=== PATIENT | male | born 1990 | race Caucasian/White ===

== ENCOUNTER 2020-11-18 17:59 | Inpatient (IN) ==
--- NOTE | 2020-11-18 18:25 | Emergency Department Note ---
Impression & Plan Depression with suicidal ideation ED Provider Note NAME: MELINDA KUMAR AGE: 30 SEX: M : 1990 ARRIVES VIA: Walk-In INFORMANT: Patient, ED PROVIDER(S): Alfonzo Miller MD Chief Complaint: Suicidal ideation, concern for mental wellness HPI: Patient is a transgender male to female name Juana who does present with concern for suicidal ideation. The patient has been researching possibility of purchasing a gun in order to shoot herself. Patient has had a prior history of SI General anxiety as well as depression. Patient has had a prior history of suicidal ideation. Patient does use psychedelics, marijuana as well as occasional alcohol use. 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 Patient sleep and appetite has been okay. Patient denies any HI or AVH. Patient states that most of the suicidal ideation is stemmed from reported rumors that the patient is not being allowed [employer] or other clubs or groups that the patient with his previously affiliated with. ROS: See HPI for pertinent positives and negatives. A total of 10 systems were reviewed and otherwise negative. Past medical history: See below Surgical history: See below Social history: See below Physical Exam: GENERAL: Well appearing, well nourished, NAD, non-toxic. EYE EXAM: Normal conjunctiva. PERRL, no anisocoria and EOM's grossly intact w/o pain. NECK: Supple, no nuchal rigidity, no adenopathy, non-tender. No signs of meningismus. LUNGS: Clear to auscultation. Normal chest wall mechanics. HEART: NSR, no MRG. ABDOMEN: Abdomen soft, non-tender, normo-active bowel sounds, no masses, no rebound or guarding. BACK: No CVA TTP. SKIN: No rashes and no bruising. UPPER EXTREMITIES: Upper extremities are grossly normal. LOWER EXTREMITIES: Grossly normal, no edema. NEURO EXAM: A&O x3, cranial nerves II-XII grossly intact, normal speech, moves all 4 extremities on command w/o issue. Psych: Positive SI, negative HI or AVH. Differential diagnoses: Mood disorder, infection, hypoglycemia, electrolyte abnormalities, cardiac sources, intracerebral event, toxicologic, trauma, neurologic, as well as other pathologies. Course: Patient was seen and evaluated the bedside. Full history physical exam was performed. MDM: Patient was seen due to concern for SI. Blood work was obtained. The patient was deemed medically cleared. The patient is a voluntary 201. Patient's home meds were ordered. Patient was signed out to Dr. Torres pending reevaluation and disposition. Past Med/Surg History Social History Smoking Status: Never smoker Preferred Language: French Feels Safe at Home: Yes Gender Identity: Female Allergies Allergies Allergy/AdvReac Type Severity Reaction Status Date / Time latex AdvReac Intermediate Rash Verified 11/18/20 21:14 mary AdvReac Intermediate Rash Verified 11/18/20 21:14 Home Meds Home Medications Medication Instructions Recorded Confirmed dexmethylphenidate 10 mg tablet 10 mg PO DAILY@1400 11/18/20 11/18/20 dexmethylphenidate 40 mg 40 mg PO QAM 11/18/20 11/18/20 capsule,extended release [id number] estradiol 2 mg tablet 2 - 4 mg PO QAM 11/18/20 11/18/20 fluoxetine 10 mg capsule 10 mg PO QAM 11/18/20 11/18/20 fluoxetine 20 mg capsule 20 mg PO QAM 11/18/20 11/18/20 guanfacine 1 mg tablet,extended 1 mg PO QAM 11/18/20 11/18/20 release 24 hr Results & Data (ED) Vital Signs Vital Signs - 24 hr 11/18/20 18:10 11/18/20 19:45 Temperature 36.7 C Temperature Source Temporal Artery Scan Pulse Rate 110 H Pulse Rate [Left Finger] 107 H Respiratory Rate 18 16 Respiratory Effort / Characteristics Non-Labored Spontaneous Non-Labored Respiratory Depth Normal Normal Respiratory Pattern Regular Blood Pressure 152/102 H Blood Pressure [Right Arm] 128/93 Blood Pressure Mean 118 Blood Pressure Mean [Right Arm] 104 Blood Pressure Position Sitting Pulse Oximetry 96 99 Oxygen Delivery Method Room Air Room Air Sepsis Recent Fever Within 48 Hours No Sepsis New/Unexplained Change in Mental Status N/A Sepsis Action Taken by Nursing No Action Required Home Medications Current Medication List: was personally reviewed by me Laboratory Data Attestation: I reviewed the patient's lab results. Result diagrams: 11/18/20 19:18 11/18/20 19:18 Lab Results 11/18/20 11/18/2011/18/21 Range/Units 18:29 18:29 19:18 WBC 6.72 (4.8-10.8) K/uL RBC 4.90 (4.7-6.1) M/uL Hgb 14.7 (14.0-18.0) g/dL Hct 43.9 (42-52) % MCV 89.6 (80-100) fL MCH 30.0 (25-34) pg MCHC 33.5 (32-36) g/dL RDW Std Deviation 42.0 (36.4-46.3) fL RDW Coeff of Susan 12.8 (11.5-14.5) % Plt Count 272 (130-400) K/uL MPV 9.7 (7.4-10.4) fL Immature Gran % (Auto) 0.1 % Neut % (Auto) 64.2 % Lymph % (Auto) 29.5 % [place] % (Auto) 4.9 % Eos % (Auto) 1.0 % Baso % (Auto) 0.3 % Neut # (Auto) 4.31 (1.4-6.5) K/uL Lymph # (Auto) 1.98 (1.2-3.4) K/uL [place] # (Auto) 0.33 (0.11-0.59) K/uL Eos # (Auto) 0.07 (0-0.5) K/uL Baso # (Auto) 0.02 (0-0.2) K/uL Immature Gran # (Auto) 0.01 (0.00-0.02) K/uL Sodium (136-145) mmol/L Potassium (3.5-5.1) mmol/L Chloride (98-107) mmol/L Carbon Dioxide (21-32) mmol/L Anion Gap (3-11) BUN (7-18) mg/dl Creatinine (0.6-1.4) mg/dl Est Cr Clr Drug Dosing ml/min Est GFR ( Amer) ml/min Est GFR (Non-Af Amer) ml/min BUN/Creatinine Ratio (10-20) Glucose (70-99) mg/dl Calcium (8.5-10.1) mg/dl Total Bilirubin (0.2-1) mg/dl AST (15-37) U/L ALT (12-78) U/L Alkaline Phosphatase (45-117) U/L Total Protein (6.4-8.2) gm/dl Albumin (3.4-5.0) gm/dl Globulin (2.5-4.0) gm/dl Albumin/Globulin Ratio (0.9-2) TSH (0.300-4.500) uIu/ml Urine Color Yellow Urine Appearance Clear (Clear) Urine pH 6.5 (4.5-7.5) Ur Specific [place] 1.017 (1.000-1.030) Urine Protein Negative (Negative) Urine Glucose (UA) Negative (Negative) Urine Ketones Negative (Negative) Urine Blood Negative (Negative) Urine Nitrite Negative (Negative) Urine Bilirubin Negative (Negative) Urine Urobilinogen Negative (Negative) Ur Leukocyte Esterase Negative (Negative) Salicylates (2.8-20) mg/dl Urine Opiates Screen Neg (Neg) Ur Methadone, Qual Neg (Neg) Acetaminophen (10-30) ug/ml Urine Barbiturates Neg (Neg) Ur Phencyclidine (PCP) Neg (Neg) U Amphetamin/Meth Scrn Neg (Neg) MDMA (Ecstasy) Screen Neg (Neg) U Benzodiazepines Scrn Neg (Neg) Ur Cocaine Metabolite Neg (Neg) U Marijuana (THC) Screen Neg (Neg) Ethyl Alcohol mg/dL (0-3) mg/dl COVID-19 Eval Order 11/18/20 11/18/20 11/18/20 Range/Units 19:18 19:18 19:18 WBC (4.8-10.8) K/uL RBC (4.7-6.1) M/uL Hgb (14.0-18.0) g/dL Hct (42-52) % MCV (80-100) fL MCH (25-34) pg MCHC (32-36) g/dL RDW Std Deviation (36.4-46.3) fL RDW Coeff of Susan (11.5-14.5) % Plt Count (130-400) K/uL MPV (7.4-10.4) fL Immature Gran % (Auto) % Neut % (Auto) % Lymph % (Auto) % [place] % (Auto) % Eos % (Auto) % Baso % (Auto) % Neut # (Auto) (1.4-6.5) K/uL Lymph # (Auto) (1.2-3.4) K/uL [place] # (Auto) (0.11-0.59) K/uL Eos # (Auto) (0-0.5) K/uL Baso # (Auto) (0-0.2) K/uL Immature Gran # (Auto) (0.00-0.02) K/uL Sodium 139 (136-145) mmol/L Potassium 3.3 L (3.5-5.1) mmol/L Chloride 108 H (98-107) mmol/L Carbon Dioxide 25 (21-32) mmol/L Anion Gap 6.0 (3-11) BUN 10 (7-18) mg/dl Creatinine 0.79 (0.6-1.4) mg/dl Est Cr Clr Drug Dosing 174.9 ml/min Est GFR ( Amer) 141.6 ml/min Est GFR (Non-Af Amer) 122.2 ml/min BUN/Creatinine Ratio 12.7 (10-20) Glucose 114 H (70-99) mg/dl Calcium 8.6 (8.5-10.1) mg/dl Total Bilirubin 1.0 (0.2-1) mg/dl AST 30 (15-37) U/L ALT 75 (12-78) U/L Alkaline Phosphatase 89 (45-117) U/L Total Protein 7.0 (6.4-8.2) gm/dl Albumin 3.7 (3.4-5.0) gm/dl Globulin 3.3 (2.5-4.0) gm/dl Albumin/Globulin Ratio 1.1 (0.9-2) TSH 0.570 (0.300-4.500) uIu/ml Urine Color Urine Appearance (Clear) Urine pH (4.5-7.5) Ur Specific [place] (1.000-1.030) Urine Protein (Negative) Urine Glucose (UA) (Negative) Urine Ketones (Negative) Urine Blood (Negative) Urine Nitrite (Negative) Urine Bilirubin (Negative) Urine Urobilinogen (Negative) Ur Leukocyte Esterase (Negative) Salicylates < 1.7 L (2.8-20) mg/dl Urine Opiates Screen (Neg) Ur Methadone, Qual (Neg) Acetaminophen < 2 L (10-30) ug/ml Urine Barbiturates (Neg) Ur Phencyclidine (PCP) (Neg) U Amphetamin/Meth Scrn (Neg) MDMA (Ecstasy) Screen (Neg) U Benzodiazepines Scrn (Neg) Ur Cocaine Metabolite (Neg) U Marijuana (THC) Screen (Neg) Ethyl Alcohol mg/dL < 3.0 (0-3) mg/dl COVID-19 Eval Order 11/18/20 Range/Units 19:45 WBC (4.8-10.8) K/uL RBC (4.7-6.1) M/uL Hgb (14.0-18.0) g/dL Hct (42-52) % MCV (80-100) fL MCH (25-34) pg MCHC (32-36) g/dL RDW Std Deviation (36.4-46.3) fL RDW Coeff of Susan (11.5-14.5) % Plt Count (130-400) K/uL MPV (7.4-10.4) fL Immature Gran % (Auto) % Neut % (Auto) % Lymph % (Auto) % [place] % (Auto) % Eos % (Auto) % Baso % (Auto) % Neut # (Auto) (1.4-6.5) K/uL Lymph # (Auto) (1.2-3.4) K/uL [place] # (Auto) (0.11-0.59) K/uL Eos # (Auto) (0-0.5) K/uL Baso # (Auto) (0-0.2) K/uL Immature Gran # (Auto) (0.00-0.02) K/uL Sodium (136-145) mmol/L Potassium (3.5-5.1) mmol/L Chloride (98-107) mmol/L Carbon Dioxide (21-32) mmol/L Anion Gap (3-11) BUN (7-18) mg/dl Creatinine (0.6-1.4) mg/dl Est Cr Clr Drug Dosing ml/min Est GFR ( Amer) ml/min Est GFR (Non-Af Amer) ml/min BUN/Creatinine Ratio (10-20) Glucose (70-99) mg/dl Calcium (8.5-10.1) mg/dl Total Bilirubin (0.2-1) mg/dl AST (15-37) U/L ALT (12-78) U/L Alkaline Phosphatase (45-117) U/L Total Protein (6.4-8.2) gm/dl Albumin (3.4-5.0) gm/dl Globulin (2.5-4.0) gm/dl Albumin/Globulin Ratio (0.9-2) TSH (0.300-4.500) uIu/ml Urine Color Urine Appearance (Clear) Urine pH (4.5-7.5) Ur Specific [place] (1.000-1.030) Urine Protein (Negative) Urine Glucose (UA) (Negative) Urine Ketones (Negative) Urine Blood (Negative) Urine Nitrite (Negative) Urine Bilirubin (Negative) Urine Urobilinogen (Negative) Ur Leukocyte Esterase (Negative) Salicylates (2.8-20) mg/dl Urine Opiates Screen (Neg) Ur Methadone, Qual (Neg) Acetaminophen (10-30) ug/ml Urine Barbiturates (Neg) Ur Phencyclidine (PCP) (Neg) U Amphetamin/Meth Scrn (Neg) MDMA (Ecstasy) Screen (Neg) U Benzodiazepines Scrn (Neg) Ur Cocaine Metabolite (Neg) U Marijuana (THC) Screen (Neg) Ethyl Alcohol mg/dL (0-3) mg/dl COVID-19 Eval Order Covid19 IDNow [facility] Administered Medications Discontinued Medications Estradiol (Estradiol 1 Mg Tab) 4 mg PO NOW STA Stop: 11/18/20 21:07 Last Admin: 11/18/20 21:33 Dose: 4 mg Documented by: [id number] Discharge Plan Visit Data Chief Complaint: Mental Health Evaluation Stated Complaint: SUCIDAL, ALTERED MENTAL STATE, INTENT TO HARM ED Provider: Alfonzo Miller Discharge Problem: Depression with suicidal ideation Forms Stand Alone Forms: [facility], Suicide Prevention Resources Prescriptions Prescriptions: No Action dexmethylphenidate 40 mg capsule,ER biphasic 50-50 40 mg PO QAM RF: 0 dexmethylphenidate 10 mg tablet 10 mg PO DAILY@1400 RF: 0 fluoxetine 10 mg capsule 10 mg PO QAM RF: 0 estradiol 2 mg tablet 2 - 4 mg PO QAM RF: 0 fluoxetine 20 mg capsule 20 mg PO QAM RF: 0 guanfacine 1 mg tablet extended release 24 hr 1 mg PO QAM RF: 0 Referrals Referrals: PCP,NO [Physician] -
[2020-11-18 18:44] LABS: Appearance Urine Clear (Clear); Bilirubin Urine Negative (Negative); Blood Urine Negative (Negative); Color Urine Yellow; Glucose Urine UA Negative (Negative); Ketones Urine Negative (Negative); Leukocyte Esterase Urine Negative (Negative); Nitrite Urine Negative (Negative); Protein Urine Negative (Negative); Specific Gravity Urine 1.017 (1.000-1.030); Urobilinogen Urine Negative (Negative); pH Urine 6.5 (4.5-7.5)
[2020-11-18 19:32] LABS: Amphetamines+Metham, Urine Neg (Neg); Barbiturates, Urine Neg (Neg); Benzodiazepine, Urine Neg (Neg); Cocaine, Urine Neg (Neg); MDMA (Ecstacy), Urine Neg (Neg); Methadone, Urine Neg (Neg); Opiate, Urine Neg (Neg); Phencyclidine, Urine Neg (Neg)
[2020-11-18 19:37] LABS: Basophils # (auto) 0.02 K/uL (0-0.2); Basophils % (auto) 0.3 %; Eosinophils # (auto) 0.07 K/uL (0-0.5); Hematocrit (blood only) 43.9 % (42-52); Hemoglobin 14.7 g/dL (14.0-18.0); Immature Granulocytes # (auto) 0.01 K/uL (0.00-0.02); Immature Granulocytes % (auto) 0.1 %; Lymphocytes # (auto) 1.98 K/uL (1.2-3.4); Lymphocytes % (auto) 29.5 %; Mean Corpuscular Hgb Conc 33.5 g/dL (32-36); Mean Corpuscular Volume 89.6 fL (80-100); Mean Platelet Volume 9.7 fL (7.4-10.4); Monocytes # (auto) 0.33 K/uL (0.11-0.59); Monocytes % (auto) 4.9 %; Neutrophils # (auto) 4.31 K/uL (1.4-6.5); Neutrophils % (auto) 64.2 %; Platelet Count 272 K/uL (130-400); RDW Coefficient of Variation 12.8 % (11.5-14.5); White Blood Count 6.72 K/uL (4.8-10.8)
[2020-11-18 19:55] LABS: Albumin Level 3.7 gm/dl (3.4-5.0); BUN Creatinine Ratio 12.7 (10-20); Calcium 8.6 mg/dl (8.5-10.1); Creatinine Clr Calc Pharmacy 174.9 ml/min; Est GFR (African American) 141.6 ml/min; Est GFR (Non-African American) 122.2 ml/min; Potassium 3.3 mmol/L (3.5-5.1)
[2020-11-18 20:05] LABS: Acetaminophen < 2 ug/ml (10-30); Salicylate < 1.7 mg/dl (2.8-20)
[2020-11-18 20:06] LABS: Albumin Globulin Ratio 1.1 (0.9-2); Globulin 3.3 gm/dl (2.5-4.0); Thyroid Stimulating Hormone 0.57 uIu/ml (0.300-4.500)
[2020-11-18] MEDS ORDERED: estradioL 1 MG TAB PO STA (21:06)
--- NOTE | 2020-11-18 22:55 | Emergency Department Note ---
ED Visit Note ED Physician Sign Out Note: 30 yr old patient with history of depression and worsening suicidal ideation now with plan to kill self with gun or jumping off a building. Patient medically cleared by Dr Miller and is here on 201 basis currently awaiting mental health placement. Stable overnight and signed out to Dr Bills pending placement. Andrea Torres MD
[2020-11-19] MEDS ORDERED: DEXMETHYLPHENIDATE PO SCH ×2 (09:00→14:00)
[2020-11-19] MEDS ORDERED: estradioL 1 MG TAB PO SCH (09:00)
[2020-11-19] MEDS: FLUoxetine HCL 10 MG CAP PO SCH (09:26)
[2020-11-19] MEDS: FLUoxetine HCL 20 MG CAP PO SCH (09:26)
[2020-11-19] MEDS ORDERED: MAGNESIUM HYDROXIDE SUSP 30 ML UDC PO PRN (14:40)
[2020-11-19] MEDS ORDERED: ACETAMINOPHEN 325 MG TAB PO PRN (14:40)
[2020-11-19] MEDS ORDERED: SODIUM CHLORIDE 0.65% NA SOLN 45 ML (OCEAN) PRN (14:40)
[2020-11-19] MEDS ORDERED: hydrOXYzine HCl 25 MG TAB PO PRN ×2 (14:40)
[2020-11-19] MEDS ORDERED: BISMUTH SUBSALICYLATE LIQD 236 ML PO PRN (14:40)
[2020-11-19] MEDS ORDERED: ALUMINUM/MAGNESIUM SUSP 30 ML UDC PO PRN (14:40)
--- NOTE | 2020-11-19 15:11 | Emergency Department Note ---
ED Visit Note Patient was admitted to 3S. .
[2020-11-20] MEDS: estradioL 1 MG TAB PO SCH ×2 (09:26→14:11)
[2020-11-20] MEDS: FLUoxetine HCL 20 MG CAP PO SCH (09:27)
[2020-11-20] MEDS: FLUoxetine HCL 10 MG CAP PO SCH (09:27)
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
[2020-11-21] MEDS: ARIPiprazole 5 MG TAB PO SCH (08:50)
[2020-11-21] MEDS: estradioL 1 MG TAB PO SCH ×2 (08:50→16:03)
[2020-11-21] MEDS: FLUoxetine HCL 20 MG CAP PO SCH (08:51)
--- NOTE | 2020-11-21 11:17 | Psychiatric Progress Note ---
Date of Service November 21, 2020 Impression / Recommendations Impression 30-year-old male female transgender patient with depression with suicidal ideation. Patient will benefit from inpatient hospitalization for purposes of safety, stabilization, medication management. Patient's struggles with depression but also seems to show some element of mood lability. Denies manic or bipolar symptoms. Will plan to use Abilify to augment antidepressant and aid in mood stability. (1) Depression with suicidal ideation: The patient was admitted to the [facility] ([facility] mental health unit) on every 15 minute checks (behavioral with suicide precautions for safety. The patient will participate in group, recreational, and milieu therapies and will be offered additional individual and family sessions as clinically appropriate. 11/21/2020atient making incremental progress. We will continue on the current regimen of 40 mg Prozac, 2.5 mg Abilify. 11/20/2020we will plan to increase patient's Prozac to 40 mg p.o. every morning. Will discontinue Focalin. Will add Abilify 2.5 mg p.o. 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 Review of Systems Sleep Information Total Hours of Sleep: 6 Meal Information Percent Meal Consumed - Breakfast: 100 Percent Meal Consumed - Lunch: 80 Percent Meal Consumed - Dinner: 90 Subjective Subjective Patient seen, chart reviewed and case discussed with treatment team, nursing and social work. Patient reports a good night of sleep and strong appetite. No side effects reported or observed. Regarding mood, patient reports some improvement which they attribute to having had some time to relax and be away from the stress of the situation. Denies any further suicidal thoughts at this time. Reports that mood is improving. Thank ful for the group therapy she is receiving. I spent 30 minutes with the patient, 50% of which was dedicated to counselling and coordination of care. Physical Exam Psychiatric Orientation: alert and oriented x 3 Apperance: appropriately groomed Eye Contact: + fair eye contact Motor Behavior: steady gait and station Speech: normal rate/rhythm/volume of speech Affect: + depressed affect Mood: + depressed mood Thought Process: linear/logical thought process Thought Content: reality based without delusions Suicidal Thoughts: + reports suicidal thoughts Homicidal Thoughts: denies homicidal thoughts Hallucinations: no auditory hallucinations and no visual hallucinations Cognition: remote memory grossly intact Estimated Intelligence: + above average estimated intelligence Insight: + fair insight Judgement: + fair judgement Vital Signs (Past 24 Hours) Last Vital Signs Temp 36.6 C 11/21/20 06:40 Pulse 89 11/21/20 06:41 Resp 16 11/21/20 06:40 BP 111/74 11/21/20 06:41 Pulse Ox 100 11/19/20 17:35 Results & Data ([facility]) Current Inpatient Medications Current Inpatient Medications: Current Inpatient Medications Acetaminophen (Acetaminophen 325 Mg Tab) 650 mg PO Q4H PRN PRN Reason: Headache or Minor Fever Stop: 12/19/20 14:39 Al Hydrox/Mg Hydrox/Simethicone (Aluminum/Magnesium Susp 30 Ml Udc) 30 ml PO Q4H PRN PRN Reason: GI Upset Stop: 12/19/20 14:39 Aripiprazole (Aripiprazole 5 Mg Tab) [facility] Stop: 12/21/20 08:59 Last Admin: 11/21/20 08:50 Dose: 2.5 mg Documented by: Bismuth Subsalicylate (Bismuth Subsalicylate Liqd 236 Ml) 15 ml PO PRN PRN PRN Reason: Loose Stool Stop: 12/19/20 14:39 Estradiol (Estradiol 1 Mg Tab) [facility] Stop: 12/20/20 08:59 Last Admin: 11/21/20 08:50 Dose: 2 mg Documented by: Estradiol (Estradiol 1 Mg Tab) 4 mg PO TODAY@1400 [facility] Stop: 12/19/20 14:59 Last Admin: 11/20/20 14:11 Dose: 4 mg Documented by: Fluoxetine HCl (Fluoxetine Hcl 20 Mg Cap) 40 [facility] Stop: 12/21/20 08:59 Last Admin: 11/21/20 08:51 Dose: 40 mg Documented by: Guanfacine HCl (Guanfacine Hcl 1 Mg Ertab) [facility] Stop: 12/19/20 08:59 Last Admin: 11/21/20 08:51 Dose: 1 mg Documented by: Hydroxyzine HCl (Hydroxyzine Hcl 25 Mg Tab) 50 mg PO HSZ PRN PRN Reason: Insomnia Stop: 12/19/20 14:39 Hydroxyzine HCl (Hydroxyzine Hcl 25 Mg Tab) 25 mg PO Q4H PRN PRN Reason: Anxiety Stop: 12/19/20 14:39 Magnesium Hydroxide (Magnesium Hydroxide Susp 30 Ml Udc) 30 ml PO DAILY PRN PRN Reason: Constipation Stop: 12/19/20 14:39 Sodium Chloride (Sodium Chloride 0.65% Na Soln 45 Ml ([place])) 1 - 2 sprays NA PRN PRN PRN Reason: Nasal Dryness/Congestion Stop: 12/19/20 14:39 Mental Health & Subst Abuse Tx Psychiatrist Name of Psychiatrist: NETTA Gonsalez Psychiatrist's Psychiatric Appointment Comment: [address] [place] [address] Therapist Name of Therapist: Leonidas Sam, private practice Therapy Appointment Comment: Teletherapy Post Discharge Appointments Primary Care Physician Name Of Family Doctor: TELLY Webb Primary Care Provider Appointment Comment: [facility] Other #1: Name of Aftercare Appointment: Student Care and Advocacy - Priscilla Goff Phone Number of Aftercare Appointment: [phone] Contact Information Discharge Discharge Address: [address] [place] [id number]
[2020-11-22] MEDS: ARIPiprazole 5 MG TAB PO SCH (09:02)
[2020-11-22] MEDS: estradioL 1 MG TAB PO SCH ×2 (09:02→15:21)
[2020-11-22] MEDS: FLUoxetine HCL 20 MG CAP PO SCH (09:04)
--- NOTE | 2020-11-22 16:04 | Psychiatric Progress Note ---
Date of Service November 22, 2020 Impression / Recommendations Impression 30-year-old male female transgender patient with depression with suicidal ideation. Patient will benefit from inpatient hospitalization for purposes of safety, stabilization, medication management. Patient's struggles with depression but also seems to show some element of mood lability. Denies manic or bipolar symptoms. Will plan to use Abilify to augment antidepressant and aid in mood stability. (1) Depression with suicidal ideation: The patient was admitted to the [facility] ([facility] mental health unit) on every 15 minute checks (behavioral with suicide precautions for safety. The patient will participate in group, recreational, and milieu therapies and will be offered additional individual and family sessions as clinically appropriate. 11/22/2020atient's mood seems improved, will start discharge planning 11/21/2020atient making incremental progress. We will continue on the current regimen of 40 mg Prozac, 2.5 mg Abilify. 11/20/2020we will plan to increase patient's Prozac to 40 mg p.o. every morning. Will discontinue Focalin. Will add Abilify 2.5 mg p.o. 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 Review of Systems Sleep Information Total Hours of Sleep: 7.75 Meal Information Percent Meal Consumed - Breakfast: 90 Percent Meal Consumed - Lunch: 85 Percent Meal Consumed - Dinner: 100 Subjective Subjective Patient seen, chart reviewed and case discussed with treatment team, nursing and social work. Patient reports a good night of sleep and strong appetite. No side effects reported or observed. Regarding mood, patient reports some improvement which they attribute to the medications as well as the therapy they have received on the unit. Patient in bright spirits today, engaging appropriately with peers and participating in group meaningfully. Mood seems to be improved as patient is playful and joking. I spent 30 minutes with the patient, 50% of which was dedicated to counselling and coordination of care. Physical Exam Psychiatric Orientation: alert and oriented x 3 Apperance: appropriately groomed Eye Contact: + fair eye contact Motor Behavior: steady gait and station Speech: normal rate/rhythm/volume of speech Affect: + depressed affect Mood: + depressed mood Thought Process: linear/logical thought process Thought Content: reality based without delusions Suicidal Thoughts: + reports suicidal thoughts Homicidal Thoughts: denies homicidal thoughts Hallucinations: no auditory hallucinations and no visual hallucinations Cognition: remote memory grossly intact Estimated Intelligence: + above average estimated intelligence Insight: + fair insight Judgement: + fair judgement Vital Signs (Past 24 Hours) Last Vital Signs Temp 36.5 C 11/22/20 06:41 Pulse 102 H 11/22/20 06:42 Resp 16 11/22/20 06:41 BP 143/77 H 11/22/20 06:42 Pulse Ox 100 11/19/20 17:35 Results & Data ([facility]) Current Inpatient Medications Current Inpatient Medications: Current Inpatient Medications Acetaminophen (Acetaminophen 325 Mg Tab) 650 mg PO Q4H PRN PRN Reason: Headache or Minor Fever Stop: 12/19/20 14:39 Last Admin: 11/22/20 06:00 Dose: 650 mg Documented by: Al Hydrox/Mg Hydrox/Simethicone (Aluminum/Magnesium Susp 30 Ml Udc) 30 ml PO Q4H PRN PRN Reason: GI Upset Stop: 12/19/20 14:39 Aripiprazole (Aripiprazole 5 Mg Tab) [facility] Stop: 12/21/20 08:59 Last Admin: 11/22/20 09:02 Dose: 2.5 mg Documented by: Bismuth Subsalicylate (Bismuth Subsalicylate Liqd 236 Ml) 15 ml PO PRN PRN PRN Reason: Loose Stool Stop: 12/19/20 14:39 Estradiol (Estradiol 1 Mg Tab) [facility] Stop: 12/20/20 08:59 Last Admin: 11/22/20 09:02 Dose: 2 mg Documented by: Estradiol (Estradiol 1 Mg Tab) 4 mg PO TODAY@1400 [facility] Stop: 12/19/20 14:59 Last Admin: 11/22/20 15:21 Dose: 4 mg Documented by: Fluoxetine HCl (Fluoxetine Hcl 20 Mg Cap) [facility] Stop: 12/21/20 08:59 Last Admin: 11/22/20 09:04 Dose: 40 mg Documented by: Guanfacine HCl (Guanfacine Hcl 1 Mg Ertab) 1 mg PO [facility] Stop: 12/19/20 08:59 Last Admin: 11/22/20 09:05 Dose: 1 mg Documented by: Hydroxyzine HCl (Hydroxyzine Hcl 25 Mg Tab) 50 mg PO HSZ PRN PRN Reason: Insomnia Stop: 12/19/20 14:39 Hydroxyzine HCl (Hydroxyzine Hcl 25 Mg Tab) 25 mg PO Q4H PRN PRN Reason: Anxiety Stop: 12/19/20 14:39 Magnesium Hydroxide (Magnesium Hydroxide Susp 30 Ml Udc) 30 ml PO DAILY PRN PRN Reason: Constipation Stop: 12/19/20 14:39 Sodium Chloride (Sodium Chloride 0.65% Na Soln 45 Ml ([place])) 1 - 2 sprays NA PRN PRN PRN Reason: Nasal Dryness/Congestion Stop: 12/19/20 14:39 Mental Health & Subst Abuse Tx Psychiatrist Name of Psychiatrist: NETTA Gonsalez Psychiatrist's Date of Appointment with Psychiatrist: 11/28/20 Time of Appointment with Psychiatrist: 11:00 AM Psychiatric Appointment Comment: [address] [place] [address] Therapist Name of Therapist: Leonidas Sam private practice Therapist's Date of Therapist Appointment: 11/23/20 Time of Therapist Appointment: 2:00 PM Therapy Appointment Comment: Teletherapy Post Discharge Appointments Primary Care Physician Name Of Family Doctor: TELLY Webb Primary Care Date of Appointment with PCP: 11/27/20 Time of Appointment with PCP: 11:00 AM Provider Appointment Comment: [facility] Other #1: Name of Aftercare Appointment: Student Care and Advocacy - Priscilla Goff Phone Number of Aftercare Appointment: [phone] Date of Aftercare Appointment: 11/27/20 Time of Aftercare Appointment: 2:30 PM Aftercare Appointment Comment: Priscilla will call your phone for the check-in Contact Information Discharge Discharge Address: [address] [place], [place] [id number]
[2020-11-23] MEDS: ARIPiprazole 5 MG TAB PO SCH (09:11)
[2020-11-23] MEDS: estradioL 1 MG TAB PO SCH (09:11)
[2020-11-23] MEDS: FLUoxetine HCL 20 MG CAP PO SCH (09:11)
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
== END 2020-11-23 11:35 | disposition home or self-care (01) | DRG 881 ==
LOC: ED 17:59 → 3S 11-19 14:40

== ENCOUNTER 2023-12-16 14:46 | Inpatient (IN) ==
[2023-12-16 15:33] LABS: Basophils # (auto) 0.05 K/uL (0.00-0.20); Basophils % (auto) 0.5 %; Eosinophils # (auto) 0.05 K/uL (0.00-0.50); Eosinophils % (auto) 0.5 %; Hemoglobin 14.5 g/dl (14.0-18.0); Immature Granulocytes # (auto) 0.02 K/uL (0.01-0.20); Immature Granulocytes % (auto) 0.2 %; Lymphocytes # (auto) 2.05 K/uL (1.20-3.40); Lymphocytes % (auto) 19.9 %; Mean Corpuscular Hemoglobin 29.3 pg (25.0-34.0); Mean Corpuscular Hgb Conc 33.7 g/dL (32.0-36.0); Mean Corpuscular Volume 86.9 fL (80.0-100.0); Monocytes # (auto) 0.47 K/uL (0.11-0.59); Monocytes % (auto) 4.6 %; Neutrophils # (auto) 7.65 K/uL (1.40-6.50); Neutrophils % (auto) 74.3 %; Platelet Count 385 K/uL (130-400); RDW Coefficient of Variation 12.6 % (11.5-14.5); Red Blood Count 4.95 M/uL (4.70-6.10); White Blood Count 10.29 K/ul (4.8-10.8)
[2023-12-16 15:33] LABS: Appearance Urine Clear (Clear); Bilirubin Urine 1+ (Negative); Blood Urine Negative (Negative); Color Urine Dark Yellow; Glucose Urine UA Negative (Negative); Ketones Urine 1+ (Negative); Leukocyte Esterase Urine Negative (Negative); Nitrite Urine Negative (Negative); Protein Urine Negative (Negative); Specific Gravity Urine 1.034 (1.000-1.030); Urobilinogen Urine Negative (Negative); pH Urine 5.5 (4.5-7.5)
[2023-12-16 15:50] LABS: Albumin Globulin Ratio 1.9 (0.9-2); Bilirubin,Total 0.6 mg/dl (0.2-1.0); Calcium 9.6 mg/dl (8.6-10.3); Creatinine Clr Calc Pharmacy 157.8 ml/min; Est GFR (African American) 135.9 ml/min; Est GFR (Non-African American) 117.2 ml/min; Globulin 2.7 gm/dl (2.5-4.0); Potassium 3.9 mmol/L (3.5-5.1); Total Protein 7.7 gm/dl (6.0-8.3)
[2023-12-16 16:05] LABS: Thyroid Stimulating Hormone 1.033 uIu/ml (0.300-4.500)
[2023-12-16 16:12] LABS: Amphetamines+Metham, Urine Neg (Neg); Barbiturates, Urine Neg (Neg); Benzodiazepine, Urine Neg (Neg); Cocaine, Urine Neg (Neg); Fentanyl, Urine Neg (Neg); MDMA (Ecstacy), Urine Neg (Neg); Marijuana, Urine Neg (Neg); Methadone, Urine Neg (Neg); Opiate, Urine Neg (Neg); Phencyclidine, Urine Neg (Neg)
[2023-12-16 16:12] LABS: Acetaminophen < 3 ug/ml (10-30); Salicylate < 3.0 mg/dl (3.0-30)
--- NOTE | 2023-12-16 18:43 | Emergency Department Note ---
History of Present Illness General Chief complaint: Mental Health Evaluation Stated complaint: MENTAL HEALTH EVAL Time Seen by Provider: 12/16/23 15:08 History of Present Illness Provider complaint: Suicidal ideation mental health evaluation 33-year-old transgender male to female patient presents emergency department for mental health evaluation suicidal ideation. Patient reports that for the last week she has been having thoughts of wanting to kill herself. No plans on how to do it. Patient states this is triggered after she saw an old friend and states she feels very isolated. Home Medications Medication Instructions Recorded Confirmed Type estradiol 2 mg tablet 10 mg PO QAM 11/18/20 12/16/23 History guanfacine 1 mg tablet,extended 2 mg PO QAM 11/18/20 12/16/23 History release 24 hr dexmethylphenidate 10 mg tablet 10 mg PO BID 12/16/23 12/16/23 History dexmethylphenidate 40 mg 40 mg PO DAILY 12/16/23 12/16/23 History capsule,extended release -76 fluoxetine 20 mg capsule 60 mg PO DAILY 12/16/23 12/16/23 History spironolactone 100 mg tablet 200 mg PO DAILY 12/16/23 12/16/23 History Allergies Allergy/AdvReac Type Severity Reaction Status Date / Time latex AdvReac Intermediate Rash Verified 11/18/20 21:14 mary AdvReac Intermediate Rash Verified 11/18/20 21:14 Past Med/Surg History Problem List (Updated 12/16/23 @ 22:43 by Mirza Martell MD) Depression with suicidal ideation (Acute) Medical History Depression with suicidal ideation Anxiety PTSD (post-traumatic stress disorder) ADHD Tourette disorder Autism Social History Smoking Status: Never smoker Preferred Language: Cape Verdean Communication Ability: Effective Superintendent Transmission Required: No Beliefs That Will Affect Care: None Feels Safe at Home: Yes Gender Identity: Transgender Female Assistive Devices: None Physical Exam Vital Signs Vital Signs - 24 hr 12/16/23 14:49 12/16/23 15:45 12/16/23 17:42 Temperature 36.4 C L Temperature Source Temporal Artery Scan Pulse Rate 102 H Pulse Rate [Left Finger] 98 H 92 H Respiratory Rate 18 17 16 Respiratory Effort / Characteristics Non-Labored Spontaneous Respiratory Depth Normal Respiratory Pattern Regular Blood Pressure 158/104 H Blood Pressure [Right Arm] 143/104 H 118/80 Blood Pressure Mean 122 Blood Pressure Mean [Right Arm] 117 92 Blood Pressure Position Sitting Pulse Oximetry 95 98 98 Oxygen Delivery Method Room Air Room Air Room Air Sepsis Recent Fever Within 48 Hours No Sepsis New/Unexplained Change in Mental Status No Sepsis Action Taken by Nursing No Action Required Physical Exam GENERAL: oriented to person, place, and time. appears well-developed and well- nourished. HENT: Exam performed. - Head: Normocephalic and atraumatic. EYES: Conjunctivae and EOM are normal. Right eye exhibits no discharge. Left eye exhibits no discharge. No scleral icterus. NECK: Normal range of motion. Neck supple. No JVD present. CV: Normal rate, regular rhythm, normal heart sounds and intact distal pulses. There is no peripheral edema. Palpable radial pulses bue. PULM/CHEST: Effort normal and breath sounds normal. No respiratory distress. No stridor. no wheezes. no rales. ABD: The abdomen is soft. There is no tenderness. NEURO: Motor and sensation grossly intact. SKIN: Skin is warm and dry. He is not diaphoretic. PSYCH: Depressed. Course Course 1508: The patient was evaluated in room A5. A complete history and physical exam was performed 1615: Patient medically cleared. Awaiting psychiatric evaluation and placement. 2000: Patient admitted to 3 . Medical Decision Making Laboratory Data Attestation: I reviewed the patient's lab results. 12/16/23 15:07 12/16/23 15:07 Lab Results 12/16/23 12/16/23 12/16/23 Range/Units 15:02 15:07 15:08 WBC 10.29 (4.8-10.8) K/ul RBC 4.95 (4.70-6.10) M/uL Hgb 14.5 (14.0-18.0) g/dl Hct 43.0 (42.0-52.0) % MCV 86.9 (80.0-100.0) fL MCH 29.3 (25.0-34.0) pg MCHC 33.7 (32.0-36.0) g/dL RDW Std Deviation 40.0 (36.4-46.3) fL RDW Coeff of Susan 12.6 (11.5-14.5) % Plt Count 385 (130-400) K/uL MPV 10.0 (9.4-12.4) fL Immature Gran % (Auto) 0.2 % Neut % (Auto) 74.3 % Lymph % (Auto) 19.9 % [place] % (Auto) 4.6 % Eos % (Auto) 0.5 % Baso % (Auto) 0.5 % Neut # (Auto) 7.65 H (1.40-6.50) K/uL Lymph # (Auto) 2.05 (1.20-3.40) K/uL [place] # (Auto) 0.47 (0.11-0.59) K/uL Eos # (Auto) 0.05 (0.00-0.50) K/uL Baso # (Auto) 0.05 (0.00-0.20) K/uL Immature Gran # (Auto) 0.02 (0.01-0.20) K/uL Sodium 138 (136-145) mmol/L Potassium 3.9 (3.5-5.1) mmol/L Chloride 106 (98-107) mmol/L Carbon Dioxide 21 (21-32) mmol/L Anion Gap 11 (3-11) BUN 10 (6-23) mg/dl Creatinine 0.83 (0.6-1.4) mg/dl Est Cr Clr Drug Dosing 157.8 ml/min Est GFR ( Amer) 135.9 ml/min Est GFR (Non-Af Amer) 117.2 ml/min BUN/Creatinine Ratio 12.0 (10-20) Glucose 118 H (70-99(Fasting)) mg/dl Calcium 9.6 (8.6-10.3) mg/dl Total Bilirubin 0.6 (0.2-1.0) mg/dl AST 18 (13-39) U/L ALT 24 (7-52) U/L Alkaline Phosphatase 74 (34-104) U/L Total Protein 7.7 (6.0-8.3) gm/dl Albumin 5.0 (3.4-5.0) gm/dl Globulin 2.7 (2.5-4.0) gm/dl Albumin/Globulin Ratio 1.9 (0.9-2) TSH 1.033 (0.300-4.500) uIu/ml Urine Color Dark Yellow Urine Appearance Clear (Clear) Urine pH 5.5 (4.5-7.5) Ur Specific [place] 1.034 H (1.000-1.030) Urine Protein Negative (Negative) Urine Glucose (UA) Negative (Negative) Urine Ketones 1+ H (Negative) Urine Blood Negative (Negative) Urine Nitrite Negative (Negative) Urine Bilirubin 1+ H (Negative) Urine Urobilinogen Negative (Negative) Ur Leukocyte Esterase Negative (Negative) Salicylates < 3.0 L (3.0-30) mg/dl Urine Opiates Screen Neg (Neg) Ur Methadone, Qual Neg (Neg) Urine Fentanyl Screen Neg (Neg) Acetaminophen < 3 L (10-30) ug/ml Urine Barbiturates Neg (Neg) Ur Phencyclidine (PCP) Neg (Neg) U Amphetamin/Meth Scrn Neg (Neg) MDMA (Ecstasy) Screen Neg (Neg) U Benzodiazepines Scrn Neg (Neg) Ur Cocaine Metabolite Neg (Neg) U Marijuana (THC) Screen Neg (Neg) Ethyl Alcohol mg/dL < 10.0 (<10.0) mg/dl SARS-CoV-2, RNA, NAAT NEGATIVE (NEGATIVE) MDM Narrative 1508: The patient was evaluated in room A5. A complete history and physical exam was performed 1615: Patient medically cleared. Awaiting psychiatric evaluation and placement. 2000: Patient admitted to [facility]. Impression & Plan Depression with suicidal ideation Discharge Plan Visit Data Chief Complaint: Mental Health Evaluation Stated Complaint: MENTAL HEALTH EVAL ED Provider: Mirza Martell Discharge Problem: Depression with suicidal ideation Patient Disposition: Admitted As Inpatient Discharge Instructions Interventions: ED Discharge Assessment Last Done: 12/16/23 20:02
[2023-12-16] MEDS ORDERED: ALUMINUM/MAGNESIUM SUSP 30 ML UDC PO PRN (19:33)
[2023-12-16] MEDS ORDERED: ACETAMINOPHEN 325 MG TAB PO PRN (19:33)
[2023-12-16] MEDS ORDERED: BISMUTH SUBSALICYLATE LIQD 236 ML PO PRN (19:33)
[2023-12-16] MEDS ORDERED: SODIUM CHLORIDE 0.65% NA SOLN 45 ML (OCEAN) PRN (19:33)
[2023-12-16] MEDS ORDERED: MAGNESIUM HYDROXIDE SUSP 30 ML UDC PO PRN (19:33)
[2023-12-16] MEDS ORDERED: hydrOXYzine HCl 25 MG TAB PO PRN ×2 (19:33)
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
[2023-12-17] MEDS: estradioL 1 MG TAB PO SCH ×2 (12:39→17:17)
[2023-12-17] MEDS: FLUoxetine HCL 20 MG CAP PO SCH (12:40)
[2023-12-17] MEDS: METHYLPHENIDATE HCL 10 MG TABLET PO SCH (12:49)
[2023-12-17] MEDS: SPIRONOLACTONE 100 MG TAB PO SCH (13:59)
[2023-12-18] MEDS: estradioL 1 MG TAB PO SCH (08:39)
[2023-12-18] MEDS ORDERED: estradioL 1 MG TAB PO SCH (09:00)
--- NOTE | 2023-12-18 09:03 | Psychiatric Progress Note ---
Date of Service December 18, 2023 Impression / Recommendations Impression FORTUNATO KUMAR is a 33-year-old woman who currently lives in [place] alone, has a history of MDD, VIRAJ, ADHD, cPTSD, Tourette, gender dysphoria, possible ASD and was admitted on 12/16/23 19:53 on a 201 voluntary commitment for worsening depression and SI with plan of obtaining a firearm. Diagnostically consistent with unspecified depression with differential including major depressive disorder vs persistent depressive disorder vs cluster B personality disorder with exacerbation of SI in context of recent stressors and interpersonal conflict vs worsening of complex PTSD due to increased hypervigilance and sense of insecurity in the community. A: Mood improving, feels safe in the hospital and finding this beneficial for reducing hypervigilance and PTSD symptoms which she feels are what triggered increased SI and depression. Working on builiding and practicing coping skills. Finding medications beneficial and no side effects. Reviewed BPD screen which was negative, RAVINDRA score of 1. Declines any additional outpatient supports/referrals at this time, SW working on identifying outpatient psychiatrist as her current psychiatrist has retired from [employer]. MNPR-nonbinary Overall, I spent a total of 30 minutes on this case including meeting with the patient, reviewing the chart, nursing report, multidisciplinary team meeting, orders, and documentation. (1) Depression with suicidal ideation: (2) PTSD (post-traumatic stress disorder): (3) Anxiety: (4) ADHD: (5) Tourette disorder: (6) Autism: (7) Gender dysphoria: Plan 12/18/2023: Continue current medications and tx plan. 12/17/2023: The patient was admitted to the [facility] ([facility] mental health unit) on q15 min checks (behavioral with suicide precautions) for safety. The patient will participate in group, recreational, and milieu therapies and will be offered additional individual and family sessions as clinically appropriate. -Continue prior to admission fluoxetine and guanfacine ER -Neither Focalin IR nor ER is on hospital formulary so will substitute for Ritalin IR for hospitalization only, at discharge will go back to [facility] BPD screen and RAVINDRA questionnaire Inventory Assets Strengths: outpatient providers, willing to get treatment Needs: safety and stabilization, medication adjustment, additional coping skills, increased outpatient services Suicide Risk Level Suicide Risk Level: Moderate (q15 min suicide checks) (reports worsened depression with SI with plan, but mood improving, denies SI today, feels very safe in the hospital and feels able to ask for support if needed) Risk Factors Assessment Male: No : Yes Do You Have Access To A Gun?: No Health Problems: No Mental Health Diagnoses: Yes Substance Use Disorders: No Previous Attempt: No Family History of Suicide: No Previous Psychiatric Hospitalization: Yes Protective Factors Assessment Employed: Yes ([employer]) Good Rapport with Provider: Yes Interval History Identifying Information FORTUNATO KUMAR is a 33-year-old woman who currently lives in [place] alone, has a history of MDD, VIRAJ, ADHD, cPTSD, Tourette, gender dysphoria, possible ASD and was admitted on 12/16/23 19:53 on a 201 voluntary commitment for worsening depression and SI with plan of possibly using a gun. Chief Complaint "Ok". Review of Systems Sleep Information Total Hours of Sleep: 8.45 Meal Information Percent Meal Consumed - Breakfast: 50 Percent Meal Consumed - Lunch: 90 Percent Meal Consumed - Dinner: 80 Subjective Subjective Patient was seen & assessed and interval progress reviewed with treatment team nursing and social work. Rated mood as "tired", has been playing the keyboard. Very bright and pleasant around peers but appeared more despondent when alone. Reports she slept well last night. Finding the groups very helpful and the environment on the unit to be very supportive. States she feels safe and relaxed here. Expresses gratitude for "what a wonderful place this is". She denies SI today. Tolerating medications, including substitution of Ritalin since Focalin is not on the hospital formulary. Finds processing in the groups beneficial noting it is like a chance to "clean a lot of branches out of the gutter". She declines having a support meeting, due to limited supports, and declines a crisis peer referral as she prefers to focus on the work she and her outpatient therapist are doing to help her find increased opportunities for connection. Physical Exam Psychiatric Orientation: alert and oriented x 3 Apperance: appropriately dressed and appropriately groomed Eye Contact: good eye contact Motor Behavior: no abnormal motor movements Speech: normal rate/rhythm/volume of speech Affect: euthymic affect; + mood not congruent with affect Mood: + depressed mood Thought Process: goal directed thought process Thought Content: reality based without delusions Suicidal Thoughts: denies suicidal thoughts, denies suicidal plan and denies suicidal intent Homicidal Thoughts: denies homicidal thoughts Hallucinations: no auditory hallucinations and no visual hallucinations Cognition: recent memory grossly intact, remote memory grossly intact, attention grossly intact and language grossly intact Estimated Intelligence: consistent with education level Insight: + fair insight Judgment: + fair judgement Vital Signs (Past 24 Hours) Last Vital Signs Temp 36.5 C 12/18/23 06:50 Pulse 76 12/18/23 06:51 Resp 16 12/18/23 06:50 BP 111/75 12/18/23 06:51 Pulse Ox 99 12/16/23 19:58 O2 Del Method Room Air 12/16/23 19:58 Results & Data ([facility]) Current Inpatient Medications Current Inpatient Medications: Current Inpatient Medications Acetaminophen (Acetaminophen 325 Mg Tab) 650 mg PO Q4H PRN PRN Reason: Headache or Minor Fever Stop: 01/15/24 19:32 Al Hydrox/Mg Hydrox/Simethicone (Aluminum/Magnesium Susp 30 Ml Udc) 30 ml PO Q4H PRN PRN Reason: GI Upset Stop: 01/15/24 19:32 Bismuth Subsalicylate (Bismuth Subsalicylate Liqd 236 Ml) 15 ml PO PRN PRN PRN Reason: Loose Stool Stop: 01/15/24 19:32 Estradiol (Estradiol 1 Mg Tab) 6 mg PO QAM RACIEL Stop: 01/16/24 16:14 Last Admin: 12/18/23 08:39 Dose: 6 mg Estradiol (Estradiol 1 Mg Tab) 4 mg PO DAILYBD RACIEL Stop: 01/16/24 17:14 Last Admin: 12/17/23 17:17 Dose: 4 mg Fluoxetine HCl (Fluoxetine Hcl 20 Mg Cap) 60 mg PO DAILY RACIEL Stop: 01/16/24 11:59 Last Admin: 12/18/23 08:38 Dose: 60 mg Guanfacine HCl (Guanfacine Hcl 1 Mg Ertab) 2 mg PO QAM RACIEL Stop: 01/16/24 11:59 Last Admin: 12/18/23 08:38 Dose: 2 mg Hydroxyzine HCl (Hydroxyzine Hcl 25 Mg Tab) 50 mg PO HSZ PRN PRN Reason: Insomnia Stop: 01/15/24 19:32 Hydroxyzine HCl (Hydroxyzine Hcl 25 Mg Tab) 25 mg PO Q4H PRN PRN Reason: Anxiety Stop: 01/15/24 19:32 Magnesium Hydroxide (Magnesium Hydroxide Susp 30 Ml Udc) 30 ml PO DAILY PRN PRN Reason: Constipation Stop: 01/15/24 19:32 Methylphenidate HCl (Methylphenidate Hcl 10 Mg Tablet) 20 mg PO [id number] RACIEL Stop: 12/31/23 12:19 Last Admin: 12/18/23 06:46 Dose: 20 mg Sodium Chloride (Sodium Chloride 0.65% Na Soln 45 Ml ([place])) 1 - 2 sprays NA PRN PRN PRN Reason: Nasal Dryness/Congestion Stop: 01/15/24 19:32 Spironolactone (Spironolactone 100 Mg Tab) 200 mg PO DAILY RACIEL Stop: 01/16/24 11:59 Last Admin: 12/18/23 08:39 Dose: 200 mg Mental Health & Subst Abuse Tx Psychiatrist Name of Psychiatrist: Jose F Psychiatrist's Therapist Name of Therapist: Leonidas Sam (private practice) Therapist's Date of Therapist Appointment: FriDecember 23 Time of Therapist Appointment: 11am Therapy Appointment Comment: Telehealth Chief Steward/Stewardess Name of Chief Steward/Stewardess: None Post Discharge Appointments Primary Care Physician Name Of Family Doctor/PCP: Can't remember name - "Appointment with gender pills"
[2023-12-18] MEDS: IBUPROFEN 600 MG TAB PO PRN (15:25)
--- NOTE | 2023-12-19 08:07 | Psychiatric Progress Note ---
Date of Service December 19, 2023 Impression / Recommendations Impression FORTUNATO KUMAR is a 33-year-old woman who currently lives in [place] alone, has a history of MDD, VIRAJ, ADHD, cPTSD, Tourette, gender dysphoria, possible ASD and was admitted on 12/16/23 19:53 on a 201 voluntary commitment for worsening depression and SI with plan of obtaining a firearm. Diagnostically consistent with unspecified depression with differential including major depressive disorder vs persistent depressive disorder vs cluster B personality disorder with exacerbation of SI in context of recent stressors and interpersonal conflict vs worsening of complex PTSD due to increased hypervigilance and sense of insecurity in the community. A: Mood a little bit lower today but denies SI and feels that her PTSD symptoms are lessening. Reached out to her mother today and felt well supported. Ongoing disposition planning. MNPR-nonbinary Overall, I spent a total of 25 minutes on this case including meeting with the patient, reviewing the chart, nursing report, multidisciplinary team meeting, o rders, and documentation. (1) Depression with suicidal ideation: (2) PTSD (post-traumatic stress disorder): (3) Anxiety: (4) ADHD: (5) Tourette disorder: (6) Autism: (7) Gender dysphoria: Plan 12/19/2023: Continue current medications and tx plan. 12/18/2023: Continue current medications and tx plan. 12/17/2023: The patient was admitted to the [facility] ([facility] mental health unit) on q15 min checks (behavioral with suicide precautions) for safety. The patient will participate in group, recreational, and milieu therapies and will be offered additional individual and family sessions as clinically appropriate. -Continue prior to admission fluoxetine and guanfacine ER -Neither Focalin IR nor ER is on hospital formulary so will substitute for Ritalin IR for hospitalization only, at discharge will go back to [facility] BPD screen and RAVINDRA questionnaire Inventory Assets Strengths: outpatient providers, willing to get treatment Needs: safety and stabilization, medication adjustment, additional coping skills, increased outpatient services Suicide Risk Level Suicide Risk Level: Moderate (q15 min suicide checks) (reports worsened d epression with SI with plan, but mood improving, denies SI today, feels very safe in the hospital and feels able to ask for support if needed) Risk Factors Assessment Male: No : Yes Do You Have Access To A Gun?: No Health Problems: No Mental Health Diagnoses: Yes Substance Use Disorders: No Previous Attempt: No Family History of Suicide: No Previous Psychiatric Hospitalization: Yes Protective Factors Assessment Employed: Yes ([employer]) Good Rapport with Provider: Yes Interval History Identifying Information FORTUNATO KUMAR is a 33-year-old woman who currently lives in [place] alone, has a history of MDD, VIRAJ, ADHD, cPTSD, Tourette, gender dysphoria, possible ASD and was admitted on 12/16/23 19:53 on a 201 voluntary commitment for worsening depression and SI with plan of possibly using a gun. Chief Complaint "OK". Review of Systems Sleep Information Total Hours of Sleep: 8 Meal Information Percent Meal Consumed - Breakfast: 100 Percent Meal Consumed - Lunch: 100 Percent Meal Consumed - Dinner: 80 Subjective Subjective Patient was seen & assessed and interval progress reviewed with treatment team nursing and social work. Social with peers. Today reports mood is "ok". Notes that today has been a "heavy day" which she attributes to processing groups, working on safety plan and talking to her mother on the phone. Denies SI, but is a little nervous about how she will do outside of the hospital. Physical Exam Psychiatric Orientation: alert and oriented x 3 Apperance: appropriately dressed and appropriately groomed Eye Contact: good eye contact Motor Behavior: no abnormal motor movements Speech: normal rate/rhythm/volume of speech Affect: euthymic affect; + mood not congruent with affect Mood: + depressed mood Thought Process: goal directed thought process Thought Content: reality based without delusions Suicidal Thoughts: denies suicidal thoughts, denies suicidal plan and denies suicidal intent Homicidal Thoughts: denies homicidal thoughts Hallucinations: no auditory hallucinations and no visual hallucinations Cognition: recent memory grossly intact, remote memory grossly intact, attention grossly intact and language grossly intact Estimated Intelligence: consistent with education level Insight: + fair insight Judgment: + fair judgement Vital Signs (Past 24 Hours) Last Vital Signs Temp 36.4 C L 12/19/23 06:43 Pulse 89 12/19/23 06:44 Resp 16 12/19/23 06:43 BP 112/72 12/19/23 06:44 Pulse Ox 99 12/16/23 19:58 O2 Del Method Room Air 12/16/23 19:58 Results & Data (U) Current Inpatient Medications Current Inpatient Medications: Current Inpatient Medications Acetaminophen (Acetaminophen 325 Mg Tab) 650 mg PO Q4H PRN PRN Reason: Headache or Minor Fever Stop: 01/15/24 19:32 Al Hydrox/Mg Hydrox/Simethicone (Aluminum/Magnesium Susp 30 Ml Udc) 30 ml PO Q4H PRN PRN Reason: GI Upset Stop: 01/15/24 19:32 Bismuth Subsalicylate (Bismuth Subsalicylate Liqd 236 Ml) 15 ml PO PRN PRN PRN Reason: Loose Stool Stop: 01/15/24 19:32 Estradiol (Estradiol 1 Mg Tab) 6 mg PO QAM [facility] Stop: 01/16/24 16:14 Last Admin: 12/18/23 08:39 Dose: 6 mg Estradiol (Estradiol 1 Mg Tab) 4 mg PO DAILYBD [facility] Stop: 01/16/24 17:14 Last Admin: 12/18/23 17:20 Dose: 4 mg Fluoxetine HCl (Fluoxetine Hcl 20 Mg Cap) 60 mg PO DAILY [facility] Stop: 01/16/24 11:59 Last Admin: 12/18/23 08:38 Dose: 60 mg Guanfacine HCl (Guanfacine Hcl 1 Mg Ertab) 2 mg PO QAM [facility] Stop: 01/16/24 11:59 Last Admin: 12/18/23 08:38 Dose: 2 mg Hydroxyzine HCl (Hydroxyzine Hcl 25 Mg Tab) 50 mg PO HSZ PRN PRN Reason: Insomnia Stop: 01/15/24 19:32 Hydroxyzine HCl (Hydroxyzine Hcl 25 Mg Tab) 25 mg PO Q4H PRN PRN Reason: Anxiety Stop: 01/15/24 19:32 Ibuprofen (Ibuprofen 600 Mg Tab) 600 mg PO Q8H PRN PRN Reason: Headache Stop: 01/17/24 15:29 Last Admin: 12/18/23 15:25 Dose: 600 mg Magnesium Hydroxide (Magnesium Hydroxide Susp 30 Ml Udc) 30 ml PO DAILY PRN PRN Reason: Constipation Stop: 01/15/24 19:32 Methylphenidate HCl (Methylphenidate Hcl 10 Mg Tablet) 20 mg PO [id number] [facility] Stop: 01/02/24 06:59 Sodium Chloride (Sodium Chloride 0.65% Na Soln 45 Ml ([place])) 1 - 2 sprays NA PRN PRN PRN Reason: Nasal Dryness/Congestion Stop: 01/15/24 19:32 Spironolactone (Spironolactone 100 Mg Tab) 200 mg PO DAILY [facility] Stop: 01/16/24 11:59 Last Admin: 12/18/23 08:39 Dose: 200 mg Mental Health & Subst Abuse Tx Psychiatrist Name of Psychiatrist: Cori JORDAN Psychiatrist's Date Of Appointment With Psychiatric Provider: 12/23/23 Time of Appointment with Psychiatrist: 10AM Psychiatric Appointment Comment: Please bring insurance card and photo ID. Therapist Name of Therapist: Leonidas Sam (private practice) Therapist's Date of Therapist Appointment: FriDecember 23 Time of Therapist Appointment: 11am Therapy Appointment Comment: Telehealth Manager Wastewater Name of Manager Wastewater: None Post Discharge Appointments Primary Care Physician Name Of Family Doctor/PCP: Can't remember name - "Appointment with gender pills"
[2023-12-19] MEDS: METHYLPHENIDATE HCL 10 MG TABLET PO SCH (08:41)
--- NOTE | 2023-12-20 13:45 | Psychiatric Progress Note ---
Date of Service December 20, 2023 Impression / Recommendations Impression FORTUNATO KUMAR is a 33-year-old woman who currently lives in [place] alone, has a history of MDD, VIRAJ, ADHD, cPTSD, Tourette, gender dysphoria, possible ASD and was admitted on 12/16/23 19:53 on a 201 voluntary commitment for worsening depression and SI with plan of obtaining a firearm. Diagnostically consistent with unspecified depression with differential including major depressive disorder vs persistent depressive disorder vs cluster B personality disorder with exacerbation of SI in context of recent stressors and interpersonal conflict vs worsening of complex PTSD due to increased hypervigilance and sense of insecurity in the community. A: Improved mood and outlook today. Planning towards discharge. MNPR-nonbinary Overall, I spent a total of 25 minutes on this case including meeting with the patient, reviewing the chart, nursing report, multidisciplinary team meeting, orders, and documentation. (1) Depression with suicidal ideation: (2) PTSD (post-traumatic stress disorder): (3) Anxiety: (4) ADHD: (5) Tourette disorder: (6) Autism: (7) Gender dysphoria: Plan 12/20/2023: Continue medications and treatment plan. 12/19/2023: Continue current medications and tx plan. 12/18/2023: Continue current medications and tx plan. 12/17/2023: The patient was admitted to the [facility] ([facility] mental health unit) on q15 min checks (behavioral with suicide precautions) for safety. The patient will participate in group, recreational, and milieu therapies and will be offered additional individual and family sessions as clinically appropriate. -Continue prior to admission fluoxetine and guanfacine ER -Neither Focalin IR nor ER is on hospital formulary so will substitute for Ritalin IR for hospitalization only, at discharge will go back to [facility] BPD screen and RAVINDRA questionnaire Inventory Assets Strengths: outpatient providers, willing to get treatment Needs: safety and stabilization, medication adjustment, additional coping skills, increased outpatient services Suicide Risk Level Suicide Risk Level: Moderate (q15 min suicide checks) (reports worsened depression with SI with plan, but mood improving, denies SI today, feels very safe in the hospital and feels able to ask for support if needed) Suicide Risk Level Comments: High-Moderate due to severe depression with SI with plan prior to admission but feels safe in the hospital, able to safety contract and agrees to let nursing/staff know should they develop plan, intent or feel unable to remain safe. Risk Factors Assessment Male: No : Yes Do You Have Access To A Gun?: No Health Problems: No Mental Health Diagnoses: Yes Substance Use Disorders: No Previous Attempt: No Family History of Suicide: No Previous Psychiatric Hospitalization: Yes Protective Factors Assessment Employed: Yes ([employer]) Good Rapport with Provider: Yes Interval History Identifying Information FORTUANTO KUMAR is a 33-year-old woman who currently lives in [place] alone, has a history of MDD, VIRAJ, ADHD, cPTSD, Tourette, gender dysphoria, possible ASD and was admitted on 12/16/23 19:53 on a 201 voluntary commitment for worsening depression and SI with plan of possibly using a gun. Chief Complaint "Isolation, interpersonal problems". Review of Systems Sleep Information Total Hours of Sleep: 8.30 Meal Information Percent Meal Consumed - Breakfast: 60 Percent Meal Consumed - Lunch: 70 Percent Meal Consumed - Dinner: 100 Subjective Subjective Patient was seen & assessed and interval progress reviewed with treatment team nursing and social work The patient reports initially being anxious about her situation. Complains that her best friend stopped talking to her. Has been attending groups and finds it helpful. Patient appears cheerful and in a good mood. Reports current IR Ritalin is not as effective as her ER formulation at home. She denies suicidal ideation. Planning towards discharge and is anxious about home situation. Open to follow-up at [place]. Physical Exam Mental Examination Appearance: Well Groomed Eye Contact: Direct Eye Contact Motor Behavior: Unremarkable Speech: Normal Mood: Euthymic and Happy Affect: Congruent Thought Process: Intact Hallucinations: None Insight: Fair Judgement: Poor Vital Signs (Past 24 Hours) Last Vital Signs Temp 36.4 C L 12/20/23 06:45 Pulse 75 12/20/23 06:45 Resp 16 12/20/23 06:45 BP 107/73 12/20/23 06:45 Pulse Ox 100 12/20/23 06:45 O2 Del Method Room Air 12/20/23 06:45 Results & Data ([facility]) Current Inpatient Medications Current Inpatient Medications: Current Inpatient Medications Acetaminophen (Acetaminophen 325 Mg Tab) 650 mg PO Q4H PRN PRN Reason: Headache or Minor Fever Stop: 01/15/24 19:32 Al Hydrox/Mg Hydrox/Simethicone (Aluminum/Magnesium Susp 30 Ml Udc) 30 ml PO Q4H PRN PRN Reason: GI Upset Stop: 01/15/24 19:32 Bismuth Subsalicylate (Bismuth Subsalicylate Liqd 236 Ml) 15 ml PO PRN PRN PRN Reason: Loose Stool Stop: 01/15/24 19:32 Estradiol (Estradiol 1 Mg Tab) 6 mg PO QAM [facility] Stop: 01/16/24 16:14 Last Admin: 12/20/23 08:33 Dose: 6 mg Estradiol (Estradiol 1 Mg Tab) 4 mg PO DAILYBD [facility] Stop: 01/16/24 17:14 Last Admin: 12/19/23 17:40 Dose: 4 mg Fluoxetine HCl (Fluoxetine Hcl 20 Mg Cap) 60 mg PO DAILY [facility] Stop: 01/16/24 11:59 Last Admin: 12/20/23 08:34 Dose: 60 mg Guanfacine HCl (Guanfacine Hcl 1 Mg Ertab) 2 mg PO QAM [facility] Stop: 01/16/24 11:59 Last Admin: 12/20/23 08:34 Dose: 2 mg Hydroxyzine HCl (Hydroxyzine Hcl 25 Mg Tab) 50 mg PO HSZ PRN PRN Reason: Insomnia Stop: 01/15/24 19:32 Hydroxyzine HCl (Hydroxyzine Hcl 25 Mg Tab) 25 mg PO Q4H PRN PRN Reason: Anxiety Stop: 01/15/24 19:32 Ibuprofen (Ibuprofen 600 Mg Tab) 600 mg PO Q8H PRN PRN Reason: Headache Stop: 01/17/24 15:29 Last Admin: 12/18/23 15:25 Dose: 600 mg Magnesium Hydroxide (Magnesium Hydroxide Susp 30 Ml Udc) 30 ml PO DAILY PRN PRN Reason: Constipation Stop: 01/15/24 19:32 Methylphenidate HCl (Methylphenidate Hcl 10 Mg Tablet) 20 mg PO [id number] [facility] Stop: 01/02/24 06:59 Last Admin: 12/20/23 13:05 Dose: 20 mg Sodium Chloride (Sodium Chloride 0.65% Na Soln 45 Ml ([place])) 1 - 2 sprays NA PRN PRN PRN Reason: Nasal Dryness/Congestion Stop: 01/15/24 19:32 Spironolactone (Spironolactone 100 Mg Tab) 200 mg PO DAILY [facility] Stop: 01/16/24 11:59 Last Admin: 12/20/23 08:34 Dose: 200 mg Mental Health & Subst Abuse Tx Psychiatrist Name of Psychiatrist: Cori JORDAN Psychiatrist's Date Of Appointment With Psychiatric Provider: 12/23/23 Time of Appointment with Psychiatrist: 10AM Psychiatric Appointment Comment: Please bring insurance card and photo ID. Therapist Name of Therapist: Leonidas Sam (private practice) Therapist's Date of Therapist Appointment: FriDecember 23 Time of Therapist Appointment: 11am Therapy Appointment Comment: Telehealth Washer Off Name of Washer Off: None Post Discharge Appointments Primary Care Physician Name Of Family Doctor/PCP: Can't remember name - "Appointment with gender pills"
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
== END 2023-12-21 10:35 | disposition home or self-care (01) | DRG 882 ==
LOC: ED 14:46 → 3S 19:53